=== PATIENT | male | born 1970 | race Caucasian/White ===

== ENCOUNTER 2020-01-29 12:42 | Emergency (ER) | payer SELFPAY ==
[2020-01-29] MEDS ORDERED: Ondansetron PF 4 MG/2 ML Vial ONE (13:24)
[2020-01-29] MEDS ORDERED: Morphine 4 MG/ML VIAL ONE ×2 (13:24→15:21)
--- NOTE | 2020-01-29 14:41 | CT ---
CT lumbar spine noncontrast: 01/29/2020 HISTORY: 49-year-old male with history of prior osteomyelitis of the spine presents with acute low back pain. COMPARISON: None available FINDINGS: There are 5 lumbar-type vertebrae. Are either 2 moderate sized or one large prominent defects involvi ng the right lateral aspect of the L4 vertebral body with sclerotic margins, consistent with large Schmorl's nodes. The overall L4 vertebral body height is maintained centrally and on the left side. T he rest of the vertebral body heights are maintained. There is no severe disc space narrowing at any level. There is no high-grade central spinal canal stenosis at any level. There is mild to modera te neural foraminal stenosis Bilaterally, L3-4 and L4-5. Mild, mostly right-sided, disc space narrowing at L3-4. There is no permeative lesion. No periostitis. No scoliosis. No spondylolysis or spondylolisthesis. N o major pathology of perivertebral spaces identified. IMPRESSION: 1.) Large Schmorl's nodes at the right side of the L4 vertebral body 2) no destructive osseous lesion. 3) if there is clinical concern for infectious spondylitis including osteomyelitis-discitis, MRI of t he lumbar spine with and without contrast should be considered (as long as there are no contraindications).
== END 2020-01-29 15:30 | disposition home or self-care (01) ==
LOC: NAV ERS 12:42
DX: M54.5 Low back pain (principal); F41.9 Anxiety disorder, unspecified; F32.9 Major depressive disorder, single episode, unspecified; Z79.899 Other long term (current) drug therapy
CPT/HCPCS: 72131; 86140; 96374; 96375; 96376; J2270; J2405